=== PATIENT | female | born 1985 | race Caucasian/White ===

== ENCOUNTER 2020-11-05 11:35 | Emergency (ER) | payer OTHER ==
[2020-11-05] MEDS ORDERED: PREDNISONE 20MG20 MG PO (14:00)
[2020-11-05] MEDS ORDERED: CYCLOBENZAPRINE10 MG PO (14:00)
[2020-11-05] MEDS ORDERED: NAPROSYN375 MG PO (14:00)
== END 2020-11-05 14:34 | disposition home or self-care (01) ==
LOC: FER 11:35
DX: S39.012A Strain of muscle, fascia and tendon of lower back, initial encounter (principal); X50.9XXA Other and unspecified overexertion or strenuous movements or postures, initial encounter; Y92.009 Unspecified place in unspecified non-institutional (private) residence as the place of occurrence of the external cause
CPT/HCPCS: 96372; 99283; J1100; J1885